=== PATIENT | male | born 1990 | race Caucasian/White ===

== ENCOUNTER 2019-07-05 23:20 | Emergency (ER) | payer SELFPAY ==
[~2019-07-05] VITALS: Ht 175.3 cm; Wt 100.0 kg
[2019-07-05 23:31] VITALS: BP 162/87
== END 2019-07-06 07:56 | disposition left against medical advice (07) ==
LOC: ER 23:20
DX: Z53.21 Procedure and treatment not carried out due to patient leaving prior to being seen by health care provider (principal); R07.89 Other chest pain
CPT/HCPCS: 93005